=== PATIENT | male | born 1955 | race Caucasian/White ===

== ENCOUNTER 2016-11-05 12:17 | Emergency (ER) | payer OTHER ==
[2016-11-05 12:37] VITALS: BP 137/89
--- NOTE | 2016-11-05 13:12 | EDM.PDOC ---
[id number]: UTI? Time Seen by Provider: 11/05/16 12:50 Source of Information: Reports: Patient History Limitations: Reports: No Limitations - History of Present Illness INITIAL COMMENTS - FREE TEXT/NARRATIVE: 61-year-old male with dysuria off and on for the past several days. No fevers or chills, no back pain. He does have some medications that could cause dysuria as a side effect, but he is concerned there may be an infection. Denies abdominal pain. Onset: Unknown/Unsure Duration: Recurring Severity: Mild Associated Symptoms: Denies: Fever/Chills, Nausea/Vomiting - Related Data Allergies Allergy/AdvReac Type Severity Reaction Status Date / Time No Known Allergies Allergy Verified 11/05/16 12:38 Home Meds: Home Meds Apixaban [Eliquis] 5 mg PO BID 11/05/16 [History] Aspirin 81 mg PO DAILY 11/05/16 [History] Fluticasone Furoate [Flonase Sensimist] 11/05/16 [History] Omeprazole 20 mg PO DAILY 11/05/16 [History] Sotalol [Betapace] 80 mg PO BID 11/05/16 [History] atorvaSTATin [Lipitor] 20 mg PO DAILY 11/05/16 [History] Past Medical History Cardiovascular History: Reports: Afib, High Cholesterol Genitourinary History: Reports: Renal Calculus Musculoskeletal History: Reports: Fracture 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 - Past Surgical History HEENT Surgical History: Reports: Tonsillectomy Cardiovascular Surgical History: Reports: Cardiac Ablation Other Cardiovascular Surgeries/Procedures: cardioversion october 20 GI Surgical History: Reports: Colonoscopy Male Surgical History: Reports: Lithotripsy (ESWL) Social & Family History - Tobacco Use Smoking Status *Q: Never Smoker - Caffeine Use Caffeine Use: Reports: Coffee - Recreational Drug Use Recreational Drug Use: No ED ROS GENERAL - Review of Systems Review Of Systems: See Below Constitutional: Denies: Fever, Chills Respiratory: Denies: Shortness of Breath Cardiovascular: Denies: Chest Pain GI/Abdominal: Denies: Abdominal Pain Skin: Reports: No Symptoms Neurological: Reports: Other (Patient has proximal muscle weakness chronically) ED EXAM, RENAL/ - Physical Exam Exam: See Below Exam Limited By: No Limitations General Appearance: Alert, No Apparent Distress Respiratory/Chest: No Respiratory Distress Back Exam: No: CVA Tenderness (R), CVA Tenderness (L) Psychiatric: Normal Affect, Normal Mood Skin Exam: Warm, Dry Course - Vital Signs Last Recorded V/S: Last Vital Signs Temp 95.7 F 11/05/16 12:39 Pulse 56 L 11/05/16 12:39 Resp 16 11/05/16 12:39 BP 137/89 11/05/16 12:39 Pulse Ox 99 11/05/16 12:39 - Orders/Labs/Meds Labs: Laboratory Tests 11/05/16 Range/Units 12:49 Urine Color Yellow Urine Appearance Slightly cloudy Urine pH 7.0 (4.5-8.0) Ur Specific [place] 1.010 (1.008-1.030) Urine Protein Negative (NEGATIVE) mg/dL Urine Glucose (UA) Normal (NEGATIVE) mg/dL Urine Ketones Negative (NEGATIVE) mg/dL Urine Occult Blood Negative (NEGATIVE) Urine Nitrite Negative (NEGAITVE) Urine Bilirubin Negative (NEGATIVE) Urine Urobilinogen Normal (NORMAL) mg/dL Ur Leukocyte Esterase Negative (NEGATIVE) Urine RBC Not seen (0-5) Urine WBC Not seen (0-5) Ur Epithelial Cells Not seen Amorphous Sediment Moderate Urine Bacteria Rare Urine Mucus Rare - Re-Assessments/Exams Free Text/Narrative Re-Assessment/Exam: 11/05/16 13:11 UA was obtained. It was normal. It was explained to the patient that he has no UTI and he was reassured. He will follow up as needed. Departure - Departure Time of Disposition: 13:26 Disposition: Home, Self-Care 01 Condition: Good Clinical Impression: Dysuria, Dysuria - Discharge Information Instructions: Dysuria Referrals: PCP,None [Primary Care Provider] - Forms: ED Department Discharge Care Plan Goals: Continue your regular medications as prescribed. Return anytime if worsening or concerns.
== END 2016-11-05 13:26 | disposition home or self-care (01) ==
LOC: JP.ED 12:17
DX: R30.0 Dysuria (principal); I48.91 Unspecified atrial fibrillation; E78.00 Pure hypercholesterolemia, unspecified; Z87.442 Personal history of urinary calculi; Z98.890 Other specified postprocedural states; Z79.82 Long term (current) use of aspirin; Z79.899 Other long term (current) drug therapy
CPT/HCPCS: 81001; 99284

== ENCOUNTER 2016-11-13 08:51 | Emergency (ER) | payer OTHER ==
[2016-11-13 09:10] VITALS: BP 124/87
[2016-11-13] MEDS ORDERED: predniSONE 20 MG Tab PO ONE (10:59)
--- NOTE | 2016-11-13 12:17 | EDM.PDOC ---
ED HPI GENERAL MEDICAL PROBLEM - General Chief Complaint: Neurological Problem Stated Complaint: LEFT FACE PAIN AND JAW PAIN Time Seen by Provider: 11/13/16 09:30 Source of Information: Reports: Patient History Limitations: Reports: No Limitations - History of Present Illness INITIAL COMMENTS - FREE TEXT/NARRATIVE: This gentleman complains of pain to the left side of his face. It started about 48 hours ago. Seems to be worse at night. The pain extends from the left side of his nose up across the left frontal area to the left temporal area. It then sort of goes down in front of the ear down to the left mandible and sort of in the left anterior cervical triangle. His teeth feel a little bit sore also. The pain is constant. He has a history of some sinus problems in the past. He did get Zostavax previously he denies any hypoesthesia of the skin of the face. He does have some chronic drooping of the left eyelid which is unchanged. He's a little bit concerned also because he has a history of atrial fibrillation and takes Eliquis and aspirin. He denies any visual changes. 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 - Past Surgical History HEENT Surgical History: Reports: Tonsillectomy Cardiovascular Surgical History: Reports: Cardiac Ablation Other Cardiovascular Surgeries/Procedures: cardioversion october 20 GI Surgical History: Reports: Colonoscopy Male Surgical History: Reports: Lithotripsy (ESWL) Social & Family History - Tobacco Use Smoking Status *Q: Never Smoker - Caffeine Use Caffeine Use: Reports: Coffee - Recreational Drug Use Recreational Drug Use: No ED ROS GENERAL - Review of Systems Review Of Systems: See Below Constitutional: Reports: No Symptoms HEENT: Reports: Other Respiratory: Reports: No Symptoms (See history of present illness) Cardiovascular: Reports: No Symptoms Endocrine: Reports: No Symptoms GI/Abdominal: Reports: No Symptoms ED EXAM, NEURO - Physical Exam Exam: See Below Exam Limited By: No Limitations General Appearance: Alert, WD/WN, No Apparent Distress Eye Exam: Bilateral Eye: EOMI, PERRL, Other (There is very slight ptosis of the left eye and the left upper lid does not appear to close fully.) Ears: Normal External Exam, Normal Canal, Normal TMs Nose: Normal Inspection Throat/Mouth: Normal Inspection, Normal Oropharynx (Teeth nontender) Head Exam: Other (There is moderate tenderness over the left temporal artery. The patient indicates that is the most tender thing on the whole exam. He points to it with a fingertip) Neck: Normal Inspection Respiratory/Chest: Lungs Clear Cardiovascular: Regular Rate, Rhythm Neurological: Alert, Normal Mood/Affect, CN II-XII Intact, Oriented x 3 Extremities: Normal Inspection Psychiatric: Normal Affect Skin Exam: Warm, Dry Course - Vital Signs Last Recorded V/S: Last Vital Signs Temp 35.7 C 11/13/16 09:49 Pulse 57 L 11/13/16 09:49 Resp 15 11/13/16 09:49 BP 124/87 11/13/16 09:49 Pulse Ox 97 11/13/16 09:49 - Orders/Labs/Meds Labs: Laboratory Tests 11/13/16 11/13/16 11/13/16 Range/Units 11:11 11:11 11:11 WBC 5.5 (4.5-11.0) K/uL RBC 4.83 (4.30-5.90) M/uL Hgb 14.7 (12.0-15.0) g/dL Hct 42.8 (40.0-54.0) % MCV 89 (80-98) fL MCH 30 (27-31) pg MCHC 34 (32-36) % Plt Count 159 (150-400) K/uL Neut % (Auto) 55 (36-66) % Lymph % (Auto) 29 (24-44) % [place] % (Auto) 13 H (2-6) % Eos % (Auto) 2 (2-4) % Baso % (Auto) 0 (0-1) % ESR 12 (0-20) mm/hr Sodium 142 (140-148) mmol/L Potassium 4.0 (3.6-5.2) mmol/L Chloride 106 (100-108) mmol/L Carbon Dioxide 33 H (21-32) mmol/L Anion Gap 7.0 (5.0-14.0) mmol/L BUN 20 H (7-18) mg/dL Creatinine 1.0 (0.8-1.3) mg/dL Est Cr Clr Drug Dosing 88.83 mL/min Estimated GFR (MDRD) > 60 (>60) Glucose 95 (74-106) mg/dL Calcium 8.8 (8.5-10.1) mg/dL Total Bilirubin 1.1 H (0.2-1.0) mg/dL AST 22 (15-37) U/L ALT 28 (12-78) U/L Alkaline Phosphatase 92 (46-116) U/L Total Protein 7.0 (6.4-8.2) g/dL Albumin 3.4 (3.4-5.0) g/dL Globulin 3.6 H (2.3-3.5) g/dL Albumin/Globulin Ratio 0.9 L (1.2-2.2) Meds: Medications Discontinued Medications Generic Name Dose Route Start Last Admin Trade Name Freq PRN Reason Stop Dose Admin Prednisone 60 mg 11/13/16 10:59 11/13/16 11:38 Prednisone PO 11/13/16 11:00 60 mg ONETIME ONE Administration - Re-Assessments/Exams Free Text/Narrative Re-Assessment/Exam: 11/13/16 12:24 labs were reviewed with the patient. I explained to him the nature of the temporal arteritis and how it was very important to begin treatment early. He has had symptoms now for about 48 hours so will begin treatment with prednisone. He asked if he could delay treatment until he sees his doctor however I informed him that it was very important to begin treatment now. It's likely that his workup will be negative for temporal arteritis still it's very important to begin treatment now and so he agrees. He was given a copy of the [employer] article on temporal arteritis. The patient received 60 mg prednisone here in the ER Departure - Departure Time of Disposition: 12:11 Disposition: Home, Self-Care 01 Condition: Fair Clinical Impression: Temporal arteritis - Discharge Information Instructions: Temporal Arteritis Referrals: PCP,None [Primary Care Provider] - Forms: ED Department Discharge Additional Instructions: Take prednisone 20 mg, 3 tablets daily either separately or all at once. #21 prescribed. You have signs of temporal arteritis, and a serious inflammation of the arteries of the head. This can cause blindness if not treated properly. You will most likely need to have a biopsy of one of the arteries. The treatment is a high-dose steroid such as prednisone. There is also evidence that aspirin may help so continue your aspirin. Talk with your doctor within the next couple of days about the treatment plan. There is no expected interaction between prednisone and your anticoagulant.
== END 2016-11-13 13:00 | disposition home or self-care (01) ==
LOC: JP.ED 08:51
DX: M31.6 Other giant cell arteritis (principal); I48.91 Unspecified atrial fibrillation; E78.00 Pure hypercholesterolemia, unspecified; Z98.890 Other specified postprocedural states; Z79.82 Long term (current) use of aspirin; Z79.899 Other long term (current) drug therapy
CPT/HCPCS: 36415; 80053; 85025; 85651; 99283; A9270